=== PATIENT | female | born 1980 | race American Indian/Alaskan Native ===

== ENCOUNTER 2018-02-26 13:04 | Emergency (ER) | payer OTHER ==
[2018-02-26 13:44] VITALS: BP 139/78; PULSE 81; RESP 18; TEMP 98.3; O2SAT 99
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
== END 2018-02-26 16:02 | disposition home or self-care (01) ==
LOC: H.ER 13:04
DX: M54.9 Dorsalgia, unspecified (principal); S13.4XXA Sprain of ligaments of cervical spine, initial encounter; S16.1XXA Strain of muscle, fascia and tendon at neck level, initial encounter; V43.52XA Car driver injured in collision with other type car in traffic accident, initial encounter; Y92.410 Unspecified street and highway as the place of occurrence of the external cause; I10 Essential (primary) hypertension
CPT/HCPCS: 96372; 99283; J1885